=== PATIENT | female | born 1955 | race Caucasian/White ===

== ENCOUNTER 2024-04-07 17:19 | Emergency (ER) | payer OTHER, SELFPAY ==
[2024-04-07 17:19] VITALS: BMI 19.8
[2024-04-07 17:22] VITALS: BP 132/87
--- NOTE | 2024-04-07 18:28 | ED.GENMED ---
History of Present Illness
General
Chief Complaint: Musculo-Skeletal Complaint
Source: patient
Exam Limitations: none
Time Seen by Provider: 04/07/24 18:28
Nursing documentation reviewed up to this point in time: agreed with
History of Present Illness
History of Present Illness:
69-year-old female past medical history of hyperlipidemia, diverticulitis presents emergency department today with left lower shoulder pain following a fall. Patient reports that she was putting a knee up on the bathroom sink to reach something to
help clean when she fell back, fall onto the the shower door, and subsequently fell onto her left side. She did not hit her head. She did not injure her neck. She did not syncopize. She denies dizziness or lightheadedness. She denies any other
injuries. She was able to get up on her own okay after the injury. Denies any pain anywhere else. Denies any chest pain or shortness of breath. She does not take any blood thinners. She was sent here to the emergency department today from
urgent care they saw a nondisplaced fracture of the acromial process of the left scapula. Patient states that she was told that they want to get better characterization of her fracture they sent her here however the provider urgent care did not
speak to orthopedist.
Review of Systems
Review of Systems
All Other Systems: ROS reviewed and negative except as documented in HPI and ROS
Phy Exam
Physical Exam
Physical Exam:
General: Patient is well appearing and in no acute distress; non-toxic
Skin: Warm and dry, no rashes or lesions
Head: Normocephalic, atraumatic
Eyes: Sclera non-icteric. EOMs intact. PERRLA.
Neck: Patient seen spontaneously moving cervical spine, no tenderness palpation of cervical
Cardiac: Regular rate
Pulm: Normal respiratory effort
Musculoskeletal: No obvious bony deformity of the left shoulder
Neuro: CN II-XII intact, no focal neurologic deficits.
Psychiatric: Appropriate mood and affect.
Course
Orders/Labs/Results
Orders:
Orders
04/07/24 19:14
Upper Ext Left wo Contrast CT [CT Upper Ext W/o Iv Cont Lt] Urgent
Comment:
Reason For Exam: left anterior shoulder pain
Vital Signs
Initial and Last Documented VS:
Initial Vital Signs
Pulse Resp BP Pulse Ox
92 16 132/87 100
04/07/24 17:22 04/07/24 17:22 04/07/24 17:22 04/07/24 17:22
Last Documented Vital Signs
Pulse Resp BP Pulse Ox
92 20 132/87 100
04/07/24 17:22 04/07/24 20:00 04/07/24 17:22 04/07/24 17:22
MDM/Problems Addressed
Differential Diagnosis Includes:
Acromial fracture, humerus fracture, glenoid from
MDM/Problems Addressed:
69-year-old female presents emergency department today with left shoulder pain following a fall. She was sent from urgent care after she was found to have a nondisplaced fracture of the acromial process of the left scapula. She was told she needs
this CAT scan for further evaluation. I spoke to the orthopedist on-call who states that she is not urgently needed CAT scan however would be helpful for outpatient follow-up with orthopedist. Did send patient off her CAT scan. Patient requesting
stronger pain medication to help her at home should she get breakthrough pain. This was sent to the pharmacy. Patient stable for discharge.
Chronic conditions affecting care:
n/a
Acute Exacerbation and/or Progression of Chronic Illness:
n/a
*Pulse Oximetry
Patient hypoxic: no
*Critical Care Note
Total Time (30-74mins, 75-104mins- exclusive of procedures): Not Applicable
Data Reviewed
Review of Other/Old Records Reveals: Records (No previous ER physician documentation to review ) and Discharge Summary (No discharge summary to review)
Source: patient and records
Prescriptions/Medications Considered But Not Given:
n/a
Further Testing Considered But Not Given:
n/a
Patient Management
Escalation/DeEscalation of care consider admission/obs:
Admit not indicated, patient stable for discharge
ED Attending Note
-
Portions of this chart may have been created with voice recognition software.� Occasional wrong word or��sound alike� substitutions may have occurred due to the inherent limitations of voice recognition software.
Discharge Plan
Departure
Patient with high blood pressure during this ER visit?: Yes
Condition: Good
Discharge Problem:
Fracture of acromial process of left scapula
Instructions: Shoulder Blade Fracture, How to Use a Shoulder Sling
Prescriptions:
New
oxycodone-acetaminophen [Percocet] 5-325 mg tablet
1 tab PO Q6HPRN PRN (Reason: pain) Qty: 6 0RF
Referrals:
Colton Qureshi MD [Family Provider] -
Deng Bliss MD [Active] - Call in 1-3 days for appt
Activity Restrictions/Additional Instructions:
I recommend taking ibuprofen as needed for your pain. Should you have breakthrough pain, you can take a Percocet. You can take 1 tablet every 6 hours as needed. Please do not take Tylenol while taking this medication as this medication has
Tylenol in it.
Please follow-up with an orthopedist. Please call the attached number to schedule an appointment and say you were evaluated in the emergency department.
Please return to the emergency department for any new or worsening symptoms.
Interventions
Interventions:
*Risk Screen - Suicide Last Done: 04/07/24 18:46
*General Assessment Last Done: 04/07/24 18:46
*Neglect/Abuse Screening Last Done: 04/07/24 18:46
ED- Fall Risk Assessment Last Done: 04/07/24 18:46
*ED COVID-19 Vaccine History Last Done: 04/07/24 18:46
ED-Musculoskeletal Assessment Last Done: 04/07/24 18:46
Discharge Date and Time
Print Language: GREENLANDIC
[2024-04-07] MEDS: PERCOCET 5/325 2 TABLET PO (21:35)
== END 2024-04-07 21:49 | disposition home or self-care (01) ==
LOC: EMR 17:19
PROVIDERS: EMERGENCY PHYSICIAN Emergency Medicine; FAMILY PHYSICIAN Internal Medicine
DX: S42.125A Nondisplaced fracture of acromial process, left shoulder, initial encounter for closed fracture (principal); W19.XXXA Unspecified fall, initial encounter; E78.5 Hyperlipidemia, unspecified; R03.0 Elevated blood-pressure reading, without diagnosis of hypertension
CPT/HCPCS: 99284; 73200

== ENCOUNTER → 2025-01-10 12:42 | Outpatient (REF) | payer OTHER, SELFPAY | LOC: EMG 12:42 | PROVIDERS: ATTENDING PHYSICIAN Orthopaedic Surgery Hand Surgery; FAMILY PHYSICIAN Internal Medicine | DX: M25.512 Pain in left shoulder (principal); R20.0 Anesthesia of skin | CPT/HCPCS: 95886; 95909 ==

== ENCOUNTER → 2025-04-14 13:45 | Outpatient (REF) | payer OTHER, SELFPAY ==
[2025-04-14 14:30] LABS: Hematocrit 42.4 % (37.0-47.0); Hemoglobin 13.9 g/dL (12.0-16.0); Mean Corp Hgb Conc. 32.8 g/dL (33.0-37.0); Mean Corpuscular Volume 95.3 fL (81.0-99.0); Nucleated Red Blood Cells % 0 %; Platelet Count 309 10^3/uL (130-400); Red Cell Dist. Width 13.2 % (11.5-14.5)
[2025-04-14 15:04] LABS: Blood Urea Nitrogen 21 mg/dl (7-17); Calcium 10.1 mg/dl (8.4-10.2); Carbon Dioxide 32 mmol/L (22-30); Chloride 99 mmol/L (98-107); Glucose 91 mg/dl (70-99); Potassium 4.4 mmol/L (3.5-5.1); Sodium 138 mmol/L (135-145); eGFR > 60.00
== END ==
LOC: RCS 13:45
PROVIDERS: ATTENDING PHYSICIAN Orthopaedic Surgery Hand Surgery; FAMILY PHYSICIAN Internal Medicine
DX: Z01.818 Encounter for other preprocedural examination (principal)
CPT/HCPCS: 36415; 80048; 85025; 93005

== ENCOUNTER 2025-07-04 13:25 | Emergency (ER) | payer OTHER, SELFPAY ==
[2025-07-04 13:28] VITALS: BP 128/75
[2025-07-04 13:44] LABS: Hematocrit 41.7 % (37.0-47.0); Hemoglobin 13.6 g/dL (12.0-16.0); Mean Corp Hgb Conc. 32.6 g/dL (33.0-37.0); Mean Corpuscular Volume 96.8 fL (81.0-99.0); Nucleated Red Blood Cells % 0 %; Platelet Count 527 10^3/uL (130-400); Red Cell Dist. Width 13.7 % (11.5-14.5)
[2025-07-04 14:01] LABS: ALT (SGPT) 48 U/L (0-35); AST (SGOT) 31 U/L (14-36); Albumin 4.1 g/dl (3.5-5.0); Alkaline Phosphatase 158 U/L (38-126); Blood Urea Nitrogen 27 mg/dl (7-17); Calcium 9.2 mg/dl (8.4-10.2); Carbon Dioxide 28 mmol/L (22-30); Chloride 100 mmol/L (98-107); Glucose 123 mg/dl (70-99); Potassium 4.1 mmol/L (3.5-5.1); Sodium 136 mmol/L (135-145); Total Protein 7.4 g/dl (6.3-8.2); eGFR > 60.00
--- NOTE | 2025-07-04 15:07 | ED.GENMED ---
History of Present Illness
General
Chief Complaint: Headache
Source: patient
Exam Limitations: none
Time Seen by Provider: 07/04/25 14:46
History of Present Illness
History of Present Illness:
70yoF with a history of migraines, vasovagal syncope, and hyperlipidemia presenting for evaluation of a headache. Patient has syncopal episode about 2 weeks ago in which she passed out without any prodromal symptoms. She has a history of syncope
but typically has warning signs beforehand. She developed a headache about 2 to 3 days later. She is unsure if she hit her head during the syncopal episode. She describes a generalized throbbing headache which has been gradually worsening.
Symptoms seem to be worse at nighttime and improved during the day. Pain was at its maximum yesterday night and she was having difficulty sleeping. She currently rates her headache as a 7 out of 10 in severity. She has been taking Celebrex and
[id number] medications without any relief. Pain is worse with movement of her neck. She denies any neck stiffness, fevers, visual changes, eye pain, photophobia, weakness, paresthesias, dizziness, chest pain, shortness of breath.
Phy Exam
General Physical Exam
General Presentation: well appearing and no apparent distress
General Skin: warm and dry
General Habitus: normal
General Mental: alert
ENT Exam
ENT Exam: normocephalic
Additional ENT: No meningismus
Eye Exam
Eye Exam: PERRL, EOMI and conjunctiva normal
Cardiovascular Exam
Cardiovascular Exam: regular rate/rhythm
Pulmonary Exam
Pulmonary Exam: lungs clear, no respiratory distress, no rales, no crackles, no rhonchi and no wheezing
Neurological Exam
Neurological Exam: alert, no motor deficits and speech normal
[place] Coma Scale
Eye Opening: Spontaneous
Verbal Response: Oriented
Motor Response: Obeys Commands
GCS Total Score: 15
Skin Exam
Skin Exam: normal color and warm/dry
Psychiatric Exam
Psychiatric Exam: normal mood/affect
Course
Orders/Labs/Results
Orders:
Orders
07/04/25 13:[address] [CT Head W/o Iv Contrast] Urgent
Comment:
Reason For Exam: head injury
07/04/25 13:35
C-Reactive Protein Urgent
Comment: ADD ON
CMP [Comprehensive Metabolic Panel] Urgent
Complete Blood Count/With Diff Urgent
Erythrocyte Sed Rate Urgent
Comment: ADD ON
07/04/25 15:01
Add On- LAB Urgent
Tests Added?: ESR, CRP
Electrocardiogram (*1) Urgent
Reason for Study: Syncope
CT Head & Neck Angio W/wo IV Urgent
Comment:
Reason For Exam: new onset headaches
EKG- Treatment ONCE
0.9% Sodium Chloride 500 ml [Nss] 500 ml IV BOLUS
Acetaminophen 1000MG/100Ml [Ofirmev] 1,000 mg in 100 ml IV ONCE
Acetaminophen IV Indication:: ED Narcotic Naive Pt-ONCE
Dexamethasone Sod Phosphate [Decadron] 10 mg IV NOW STA
Ondansetron Injectable [Zofran] 4 mg IV NOW STA
07/04/25 15:58
Troponin I Urgent
Abnormal Lab Results
07/04/25
13:35
MCH 31.6 H pg
(27.0-31.0)
MCHC 32.6 L g/dL
(33.0-37.0)
Plt Count 527 H 10^3/uL
(130-400)
Abs Immat Gran (auto) 0.1 H 10^3/uL
(0-0.05)
Absolute Monos (auto) 0.7 H 10^3/uL
(0.1-0.6)
Immature Gran % 0.7 H %
(0-0.5)
Lymphocytes % 16.7 L %
(20.5-51.1)
ESR 42 H mm/hour
(0-20)
BUN 27 H mg/dl
(7-17)
Glucose 123 H mg/dl
(70-99)
ALT 48 H U/L
(0-35)
Alkaline Phosphatase 158 H U/L
(38-126)
07/04/25 13:35
07/04/25 13:35
Vital Signs
Initial and Last Documented VS:
Initial Vital Signs
Temp Pulse Resp BP Pulse Ox
98.0 F 97 18 128/75 100
07/04/25 13:28 07/04/25 13:28 07/04/25 13:28 07/04/25 13:28 07/04/25 13:28
Last Documented Vital Signs
Temp Pulse Resp BP Pulse Ox
98.0 F 97 18 128/75 100
07/04/25 13:28 07/04/25 13:28 07/04/25 13:28 07/04/25 13:28 07/04/25 15:09
MDM/Problems Addressed
Differential Diagnosis Includes:
70yoF here with ongoing headaches x 2 weeks. Started a 2-3 days after a syncopal episode with unknown head strike. Worse at night, better during the day. Also worse with movement of neck. VSS. Patient appears very comfortable on exam. There is no
scalp rash noted. No meningismus or focal neuro deficits. Differential diagnosis includes: Tension headache, migraine, consider temporal arteritis although pain is more posterior, brain mass, consider subarachnoid hemorrhage
Initial ED plan: Workup initiated in triage and basic labs overall unremarkable. Plain head CT normal. Will check ESR/CRP, troponin/EKG, and CTA head/neck. IV Zofran, Decadron, Ofirmev, and fluid bolus for symptoms.
*Pulse Oximetry
SaO2: 100
Oxygen Mode of Delivery: Room air
Patient hypoxic: no
*EKG
Interpreted by ED Provider?: Yes
EKG Intrepretation Date: 07/04/25
Heart Rate: 80
Rate: normal
Rhythm: sinus
[place]: normal axis
Interval: normal interval
QRS Pattern: right bundle branch block (incomplete)
Ischemia: no ischemia
*Critical Care Note
Total Time (30-74mins, 75-104mins- exclusive of procedures): Not Applicable
Update Note
Update Note:
ESR elevated although <50 and CRP normal making temporal arteritis extremely unlikely. No ischemic changes on EKG and troponin undetectable. No acute findings on CTA head/neck. Headache down to a 6 out of 10 in severity on reassessment. She
clearly states that headache seems to originate in her neck and is worse with neck movement. No nuchal rigidity or infectious symptoms to suggest meningitis. Suspect tension headache. She already takes Celebrex and tizanidine that is prescribed
by her neurologist. Supportive care discussed and she was instructed to call her neurology team tomorrow for follow-up. ED return precautions reviewed and she was discharged in stable condition.
ED Attending Note
-
Portions of this chart may have been created with voice recognition software.� Occasional wrong word or��sound alike� substitutions may have occurred due to the inherent limitations of voice recognition software.
Discharge Plan
Departure
Patient Disposition: Home (Routine Discharge)
Date of Disposition: 07/04/25
Time of Disposition: 17:38
Patient with high blood pressure during this ER visit?: No
Discharge Problem:
Acute headache
Instructions: Headache, Adult (DC)
Prescriptions:
No Action
oxycodone-acetaminophen [Percocet] 5-325 mg tablet
1 tab PO Q6HPRN PRN (Reason: pain) Qty: 6 0RF
Activity Restrictions/Additional Instructions:
Continue taking Celebrex and tizanidine as needed. You may also take Tylenol. Apply heat to your neck to help with your neck discomfort.
Please follow-up with your headache specialist and family doctor. Return to the ER with any new or worsening symptoms.
Interventions
Interventions:
*General Assessment Last Done: 07/04/25 18:01
*Neglect/Abuse Screening Last Done: 07/04/25 18:01
*ED COVID-19 Vaccine History Last Done: 07/04/25 13:28
*ED Influenza Vaccine History Last Done: 07/04/25 13:28
*Risk Screen - Suicide (C-SSRS) Last Done: 07/04/25 13:28
*Nursing Disposition Last Done: 07/04/25 18:13
ED- Neurological Assessment Last Done: 07/04/25 15:17
Discharge Date and Time
Discharge Date/Time: 07/04/25 18:30
Print Language: GREEK
[2025-07-04] MEDS: NSS 500 IV (15:12)
[2025-07-04] MEDS: OFIRMEV 100 IV (15:13)
[2025-07-04] MEDS: DECADRON 10 MG IV (15:14)
[2025-07-04] MEDS: ZOFRAN 4 MG IV (15:14)
[2025-07-04 16:36] LABS: Troponin I < 0.012 ng/ml
[2025-07-04 16:50] LABS: C-Reactive Protein < 5.00 mg/L (0.0-10.00)
== END 2025-07-04 18:30 | disposition home or self-care (01) ==
LOC: EMR 13:25
PROVIDERS: Emergency Medicine; Physician Assistant; EMERGENCY PHYSICIAN Emergency Medicine
DX: R51.9 Headache, unspecified (principal); E78.5 Hyperlipidemia, unspecified
CPT/HCPCS: 99285; 96374; 96375 ×2; 70450; 70496; 70498; 80053; 84484; 85025; 85652; 86140; 93005; Q9967